=== PATIENT | male | born 1955 | race Caucasian/White ===

== ENCOUNTER 2018-09-06 14:21 | Inpatient (IN) | payer OTHER ==
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
[2018-09-06] MEDS ORDERED: guaiFENesin/D-METHORPHAN HB 10 ML UNIT-DOSE CUPS PO PRN (19:00)
[2018-09-06] MEDS ORDERED: MAGNESIUM HYDROX 2400MG/30ML ORAL SUSPENSION 30 ML CUP PO PRN (19:00)
[2018-09-06] MEDS ORDERED: MAG HYDROX/AL HYDROX/SIMETH 30 ML UNIT-DOSE CUP PO PRN (19:00)
[2018-09-06] MEDS ORDERED: P-EPHED 60MG/TRIPROLIDI 2.5MG TABLET PO PRN (19:00)
[2018-09-06] MEDS ORDERED: NICOTINE POLACRILEX 2 MG GUM BC PRN (19:00)
[2018-09-06] MEDS ORDERED: chlordiazePOXIDE HCL 25 MG CAPSULE PO PRN (19:00)
[2018-09-06] MEDS ORDERED: IBUPROFEN 400 MG TABLET (FP) PO PRN (19:00)
[2018-09-06] MEDS ORDERED: ACETAMINOPHEN 325 MG TABLET (FP) PO PRN (19:00)
[2018-09-06] MEDS ORDERED: MAGNESIUM CITRATE 300 ML BOTTLE PO PRN (19:00)
[2018-09-06] MEDS ORDERED: MENTHOL/PHENOL 1 EACH UD MM PRN (19:00)
[2018-09-06 20:12] VITALS: BMI 29.1
[2018-09-06] MEDS ORDERED: MELATONIN 5 MG TABLETS PO PRN (22:00)
[2018-09-06] MEDS: THIAMINE HCL 100 MG TABLET (FP) PO SCH (22:35)
[2018-09-06] MEDS: chlordiazePOXIDE HCL 25 MG CAPSULE PO SCH (22:35)
[2018-09-06] MEDS: BACITRACIN/POLYMYXIN B SULFATE 15 GM TUBE TP SCH (22:48)
[2018-09-07] MEDS: chlordiazePOXIDE HCL 25 MG CAPSULE PO SCH ×4 (06:12→22:18)
[2018-09-07] MEDS ORDERED: METHADONE 120 MG, METHADONE 20 MG PO ONE (10:00)
[2018-09-07] MEDS ORDERED: METHADONE HCL 10 MG TABLET PO ONE (10:00)
[2018-09-07] MEDS ORDERED: METHADONE HCL 10 MG TABLET ONE (10:02)
[2018-09-07] MEDS ORDERED: METHADONE HCL 40 MG DISPERSABLE TABLET ONE (10:03)
[2018-09-07] MEDS: PRENATAL VITAMINS W/ FOLIC ACID TABLET (FP) PO SCH (10:09)
[2018-09-07] MEDS: BACITRACIN/POLYMYXIN B SULFATE 15 GM TUBE TP SCH ×2 (10:10→22:33)
[2018-09-07] MEDS: LOPERAMIDE HCL 2 MG CAPSULE PO PRN (11:39)
--- NOTE | 2018-09-07 13:47 | PN ---
S CIWA - CIWA Score Nausea/Vomitin-No Nausea/No Vomiting Muscle Tremors: 2 Anxiety: 3 Agitation: 2 Paroxysmal Sweats: 1-Minimal Palms Moist Orientation: 0-Oriented Tacttile Disturbances: 0-None Auditory Disturbances: 0-None Visual Disturbances: 0-None Headache: 1-Very Mild CIWA-Ar Total Score: 9 BHS Progress Note (SOAP) Subjective: anxiety restlessness trouble concentrating difficulty to fall a sleep Objective: 09/07/18 14:42 Vital Signs Temperature 99.2 F 09/07/18 13:49 Pulse Rate 63 09/07/18 13:49 Respiratory Rate 18 09/07/18 13:49 Blood Pressure 97/64 09/07/18 13:49 O2 Sat by Pulse Oximetry (%) lab pending Assessment: 09/07/18 14:53 withdrawal sx Plan: continue detox
[2018-09-07] MEDS: THIAMINE HCL 100 MG TABLET (FP) PO SCH (22:19)
[2018-09-08] MEDS ORDERED: METHADONE HCL 40 MG DISPERSABLE TABLET ONE (05:04)
[2018-09-08] MEDS ORDERED: METHADONE HCL 10 MG TABLET ONE (05:04)
[2018-09-08] MEDS: METHADONE 120 MG, METHADONE 20 MG PO SCH (05:51)
[2018-09-08] MEDS: chlordiazePOXIDE HCL 25 MG CAPSULE PO SCH ×3 (05:52→17:25)
[2018-09-08] MEDS ORDERED: METHADONE HCL 40 MG DISPERSABLE TABLET PO SCH (06:00)
[2018-09-08] MEDS: PRENATAL VITAMINS W/ FOLIC ACID TABLET (FP) PO SCH (10:06)
[2018-09-08] MEDS: BACITRACIN/POLYMYXIN B SULFATE 15 GM TUBE TP SCH ×2 (10:07→22:18)
[2018-09-08 10:30] LABS: HEMATOCRIT 35.2 % (35.4-49); HEMOGLOBIN 12.1 GM/dL (11.7-16.9); MCH 31.9 pg (25.7-33.7); MCHC 34.4 g/dl (32.0-35.9); MEAN PLT VOLUME 7.9 fl (7.5-11.1); PLATELET COUNT 249 K/MM3 (134-434); RBC 3.79 M/mm3 (4.00-5.60); RDW 13.8 % (11.9-15.9); WHITE BLOOD COUNT 9.9 K/mm3 (4.0-10.0)
[2018-09-08 10:57] LABS: ALBUMIN 2.6 g/dl (3.4-5.0); ALK PHOS 68 U/L (45-117); ANION GAP 7 MMOL/L (8-16); BILIRUBIN,TOTAL 0.8 mg/dL (0.2-1); BLOOD UREA NITROGEN 10 mg/dL (7-18); CALCIUM 8.2 mg/dL (8.5-10.1); CHLORIDE 106 mmol/L (98-107); CO2 27 mmol/L (21-32); CREATININE 0.6 mg/dL (0.55-1.3); GLUCOSE,RANDOM 106 mg/dL (74-106); POTASSIUM 3.6 mmol/L (3.5-5.1); SGOT/AST 41 U/L (15-37); SGPT/ALT 31 U/L (13-61); SODIUM 140 mmol/L (136-145); TOT PROT 7.6 g/dl (6.4-8.2)
--- NOTE | 2018-09-08 16:03 | PN ---
[facility] CIWA - CIWA Score Nausea/Vomitin-No Nausea/No Vomiting Muscle Tremors: 1-None Visible, but [place] Anxiety: 1-Mildly Anxious Agitation: 1-Slight > Activity Paroxysmal Sweats: 1-Minimal Palms Moist Orientation: 1-Uncertain about Date Tacttile Disturbances: 0-None Auditory Disturbances: 0-None Visual Disturbances: 0-None Headache: 1-Very Mild CIWA-Ar Total Score: 6 S Progress Note (SOAP) Subjective: ambulate with cane anxiety tremor sweating restlessness Objective: 09/08/18 16:05 Vital Signs Temperature 99.1 F 09/08/18 13:35 Pulse Rate 61 09/08/18 13:35 Respiratory Rate 18 09/08/18 13:35 Blood Pressure 99/62 09/08/18 13:35 O2 Sat by Pulse Oximetry (%) Laboratory Last Values WBC 9.9 K/mm3 (4.0-10.0) 09/08/18 07:00 RBC 3.79 M/mm3 (4.00-5.60) L 09/08/18 07:00 Hgb 12.1 GM/dL (11.7-16.9) 09/08/18 07:00 Hct 35.2 % (35.4-49) L 09/08/18 07:00 MCV 93.0 fl (80-96) 09/08/18 07:00 MCH 31.9 pg (25.7-33.7) 09/08/18 07:00 MCHC 34.4 g/dl (32.0-35.9) 09/08/18 07:00 RDW 13.8 % (11.9-15.9) 09/08/18 07:00 Plt Count 249 K/MM3 (134-434) 09/08/18 07:00 MPV 7.9 fl (7.5-11.1) 09/08/18 07:00 Sodium 140 mmol/L (136-145) 09/08/18 07:00 Potassium 3.6 mmol/L (3.5-5.1) 09/08/18 07:00 Chloride 106 mmol/L (98-107) 09/08/18 07:00 Carbon Dioxide 27 mmol/L (21-32) 09/08/18 07:00 Anion Gap 7 MMOL/L (8-16) L 09/08/18 07:00 BUN 10 mg/dL (7-18) 09/08/18 07:00 Creatinine 0.6 mg/dL (0.55-1.3) 09/08/18 07:00 Creat Clearance w eGFR > 60 (>60) 09/08/18 07:00 Random Glucose 106 mg/dL (74-106) 09/08/18 07:00 Calcium 8.2 mg/dL (8.5-10.1) L 09/08/18 07:00 Total Bilirubin 0.8 mg/dL (0.2-1) 09/08/18 07:00 AST 41 U/L (15-37) H 09/08/18 07:00 ALT 31 U/L (13-61) 09/08/18 07:00 Alkaline Phosphatase 68 U/L (45-117) 09/08/18 07:00 Total Protein 7.6 g/dl (6.4-8.2) 09/08/18 07:00 Albumin 2.6 g/dl (3.4-5.0) L 09/08/18 07:00 RPR Titer Nonreactive (NONREACTIVE) 09/08/18 07:00 lab noted Assessment: 09/08/18 16:06 withdrawal sx Plan: continue detox
[2018-09-08] MEDS: chlordiazePOXIDE 5 MG CAPSULE PO SCH (22:18)
[2018-09-08] MEDS: THIAMINE HCL 100 MG TABLET (FP) PO SCH (22:18)
[2018-09-08] MEDS: LOPERAMIDE HCL 2 MG CAPSULE PO PRN (22:23)
[2018-09-09] MEDS ORDERED: METHADONE HCL 40 MG DISPERSABLE TABLET ONE (05:10)
[2018-09-09] MEDS ORDERED: METHADONE HCL 10 MG TABLET ONE (05:10)
[2018-09-09] MEDS: METHADONE 120 MG, METHADONE 20 MG PO SCH (05:38)
[2018-09-09] MEDS: chlordiazePOXIDE 5 MG CAPSULE PO SCH ×3 (05:39→16:52)
[2018-09-09] MEDS: BACITRACIN/POLYMYXIN B SULFATE 15 GM TUBE TP SCH ×2 (10:16→22:56)
[2018-09-09] MEDS: PRENATAL VITAMINS W/ FOLIC ACID TABLET (FP) PO SCH (10:16)
[2018-09-09] MEDS ORDERED: chlordiazePOXIDE HCL 10 MG CAPSULE ONE (20:04)
[2018-09-09] MEDS: THIAMINE HCL 100 MG TABLET (FP) PO SCH (22:56)
[2018-09-09] MEDS: chlordiazePOXIDE HCL 10 MG CAPSULE PO SCH (22:56)
--- NOTE | 2018-09-09 23:45 | PN ---
[facility] Progress Note (SOAP) Subjective: Diarrhea. Objective: PATIENT A & O X 3, OBSERVED AMBULATING ON UNIT. IN NO ACUTE DISTRESS. 09/09/18 23:43 Vital Signs Temperature 97.9 F 09/09/18 18:00 Pulse Rate 63 09/09/18 18:00 Respiratory Rate 18 09/09/18 18:00 Blood Pressure 97/61 09/09/18 18:00 O2 Sat by Pulse Oximetry (%) Laboratory Tests 09/08/18 09/08/18 09/08/18 07:00 07:00 07:00 WBC 9.9 RBC 3.79 L Hgb 12.1 Hct 35.2 L MCV 93.0 MCH 31.9 MCHC 34.4 RDW 13.8 Plt Count 249 MPV 7.9 Sodium 140 Potassium 3.6 Chloride 106 Carbon Dioxide 27 Anion Gap 7 L BUN 10 Creatinine 0.6 Creat Clearance w eGFR > 60 Random Glucose 106 Calcium 8.2 L Total Bilirubin 0.8 AST 41 H ALT 31 Alkaline Phosphatase 68 Total Protein 7.6 Albumin 2.6 L RPR Titer Nonreactive LABS NOTED. Assessment: 09/09/18 23:44 WITHDRAWAL SYMPTOMS. Plan: CONTINUE DETOX. INCREASE DAILY PO FLUID INTAKE. PRN IMMODIUM FOR DIARRHEA. PATIENT SCHEDULED FOR D/C TOMORROW.
[2018-09-10 00:30] VITALS: PULSE 68
[2018-09-10] MEDS ORDERED: METHADONE HCL 10 MG TABLET ONE (04:54)
[2018-09-10] MEDS ORDERED: METHADONE HCL 40 MG DISPERSABLE TABLET ONE (04:54)
[2018-09-10] MEDS: METHADONE 120 MG, METHADONE 20 MG PO SCH (05:04)
[2018-09-10] MEDS: chlordiazePOXIDE HCL 10 MG CAPSULE PO SCH (05:04)
[2018-09-10 06:10] VITALS: BP 95/63; TEMP 99.5
--- NOTE | 2018-09-10 20:24 | DS ---
[facility] Detox Discharge Summary Admission Date: 09/06/18 Discharge Date: 09/10/18 - History Present History: Opioid Dependence, Sedative Dependence, MMTP Additional Comments: PATIENT LEFT DETOX UNIT EARLY IN AM PRIOR TO [facility] ARRIVAL OF [employer] LE[employer] ON DETOX UNIT. THUS, PRE-DISCHARGE MEDICAL ASSESSMENT UNABLE TO BE DONE PRIOR TO PATIENT' S DISCHARGE. YESTERDAY, PATIENT REPORTED THAT HE WOULD RETURN TO [facility] ([place], [place]) FOR AFTERCARE. PATIENT ALSO NOTES THAT HE WILL ATTEND '[facility] ([place], [place]) FOR AFTERCARE. Pertinent Past History: Nicotine Dependence, Hep C, [facility] - Physical Exam Results Vital Signs: Vital Signs Temperature 99.5 F 09/10/18 06:09 Pulse Rate 68 09/10/18 06:09 Respiratory Rate 18 09/10/18 06:09 Blood Pressure 95/63 09/10/18 06:09 O2 Sat by Pulse Oximetry (%) Pertinent Admission Physical Exam Findings: WITHDRAWAL SYMPTOMS. Laboratory Tests 09/08/18 09/08/18 09/08/18 07:00 07:00 07:00 WBC 9.9 RBC 3.79 L Hgb 12.1 Hct 35.2 L MCV 93.0 MCH 31.9 MCHC 34.4 RDW 13.8 Plt Count 249 MPV 7.9 Sodium 140 Potassium 3.6 Chloride 106 Carbon Dioxide 27 Anion Gap 7 L BUN 10 Creatinine 0.6 Creat Clearance w eGFR > 60 Random Glucose 106 Calcium 8.2 L Total Bilirubin 0.8 AST 41 H ALT 31 Alkaline Phosphatase 68 Total Protein 7.6 Albumin 2.6 L RPR Titer Nonreactive LABS NOTED. - Treatment Hospital Course: Detox Protocol Followed, Detoxed Safely, Responded well, Discharged Condition Good Patient has Accepted a Rehab Referral to: PT. REFERRED TO '[facility] ([place], [place]) FOR AFTERCARE. - Medication Discharge Medications: Ambulatory Orders Methadone [Dolophine -] 140 mg PO DAILY 09/06/18 - Diagnosis (1) Nicotine dependence Status: Acute Qualifiers: Nicotine product type: cigarettes Substance use status: uncomplicated Qualified Code(s): F17.210 - Nicotine dependence, cigarettes, uncomplicated (2) Sedative hypnotic or anxiolytic dependence Status: Acute (3) Opioid dependence on agonist therapy Status: Chronic - AMA Did Patient Leave Against Medical Advice: No
== END 2018-09-10 06:35 | disposition home or self-care (01) | DRG 773 ==
LOC: YASAS 14:21 → Y3N 19:57
PROVIDERS: ADMIT Surgery; ATTEND Surgery
PROC: HZ2ZZZZ Detoxification Services for Substance Abuse Treatment (ICD-10-PCS; principal; 2018-09-06)
DX: F13.230 Sedative, hypnotic or anxiolytic dependence with withdrawal, uncomplicated (principal); F11.20 Opioid dependence, uncomplicated; F17.210 Nicotine dependence, cigarettes, uncomplicated
CPT/HCPCS: 36415; 80053; 85027; 86593

== ENCOUNTER 2022-05-07 14:18 | Inpatient (IN) | payer OTHER ==
[2022-05-07 14:35] VITALS: BMI 23.7
[2022-05-07] MEDS ORDERED: PIPERACILLIN/TAZOB 2.25 GM 2.25 GM in DEXTROSE 5%-WATER - 50 ML IVPB ONE ×2 (16:46→19:21)
[2022-05-07] MEDS ORDERED: VANCOMYCIN 1 GM in D5W (PRE-DOCKED) 1,000 MG/250 ML IVPB ONE (16:46)
[2022-05-07] MEDS ORDERED: hydrOXYzine PAMOATE 25 MG CAPSULE (FP) PO ONE ×2 (18:43→18:49)
[2022-05-07] MEDS ORDERED: DICYCLOMINE HCL 20 MG TABLET PO ONE (18:43)
[2022-05-07] MEDS ORDERED: LACTATED RINGERS SOLUTION 1000 ML INFUS.BAG IV ONE (18:44)
[2022-05-07] MEDS ORDERED: VANCOMYCIN/WATER FOR INJ (PEG) 1,000 MG/200 ML BAG IVPB ONE (18:45)
[2022-05-07] MEDS ORDERED: PIPERACILLIN/TAZOB 2.25 GM 2.25 GM/50 ML BAG IVPB ONE ×3 (18:45→18:49)
[2022-05-07] MEDS ORDERED: DICYCLOMINE HCL 10 MG CAPSULE ONE (18:49)
[2022-05-07 19:49] LABS: BASO % 0.5 % (0-2.0); EOS % 2.9 % (0-4.5); HEMATOCRIT 35.6 % (35.4-49); HEMOGLOBIN 12.3 GM/dL (11.7-16.9); LYMPH % 34.6 % (8-40); MCH 32.8 pg (25.7-33.7); MCHC 34.4 g/dl (32.0-35.9); MEAN CELL VOLUME 95.3 fl (80-96); MEAN PLT VOLUME 7.1 fl (7.5-11.1); MONO % 14.1 % (3.8-10.2); NEUT % 47.9 % (42.8-82.8); PLATELET COUNT 156 10^3/uL (134-434); RBC 3.74 M/mm3 (4.00-5.60); RDW 15.2 % (11.9-15.9)
[2022-05-07 19:58] LABS: INR 1.02 (0.83-1.09); PROTHROMBIN TIME (PATIENT) 11.7 SEC (9.7-13.0)
[2022-05-07 20:01] LABS: ACTIVATED PTT 31.7 SECONDS (25.2-36.5)
[2022-05-07 20:15] LABS: CALCIUM 8.9 mg/dL (8.5-10.1)
[2022-05-07 20:16] LABS: ALBUMIN 3.4 g/dl (3.4-5.0); MAGNESIUM 2.2 mg/dL (1.8-2.4)
[2022-05-07 20:19] LABS: CREATININE 0.8 mg/dL (0.55-1.3)
[2022-05-07 20:21] LABS: BILIRUBIN,TOTAL 0.3 mg/dL (0.2-1); TOT PROT 7.4 g/dl (6.4-8.2)
[2022-05-08] MEDS ORDERED: LORazepam 1 MG TABLET ONE (00:28)
[2022-05-08] MEDS ORDERED: VANCOMYCIN/WATER 1,250 MG/250 ML BAG IVPB SCH ×3 (03:30→07:15)
[2022-05-08] MEDS: LORazepam 1 MG TABLET PO PRN ×2 (04:47→08:57)
[2022-05-08] MEDS ORDERED: methaDONE HCL 10 MG TABLET PO ONE (08:16)
[2022-05-08] MEDS: ENOXAPARIN NA (PORCINE) 40 MG/0.4 ML DISP.SYRIN SQ SCH (10:13)
[2022-05-08] MEDS ORDERED: chlordiazePOXIDE HCL 25 MG CAPSULE PO PRN (12:52)
[2022-05-08] MEDS ORDERED: BENZOCAINE/MENTHOL (CHLORASEPTIC ) LOZENGE MM PRN (13:53)
[2022-05-08] MEDS ORDERED: MAG HYDROX/AL HYDROX/SIMETH 30 ML UNIT-DOSE CUP PO PRN (13:53)
[2022-05-08] MEDS ORDERED: ONDANSETRON *ODT* 4 MG TABLET SL PRN (13:53)
[2022-05-08] MEDS ORDERED: MAGNESIUM CITRATE 300 ML BOTTLE PO PRN (13:53)
[2022-05-08] MEDS ORDERED: IBUPROFEN 400 MG TABLET (FP) PO PRN (13:53)
[2022-05-08] MEDS ORDERED: hydrOXYzine PAMOATE 25 MG CAPSULE (FP) PO PRN (13:53)
[2022-05-08] MEDS ORDERED: DICYCLOMINE HCL 10 MG CAPSULE PO PRN (13:53)
[2022-05-08] MEDS ORDERED: MAGNESIUM HYDROX 2400MG/30ML ORAL SUSPENSION 30 ML CUP PO PRN (13:53)
[2022-05-08] MEDS ORDERED: ACETAMINOPHEN 325 MG TABLET (FP) PO PRN ×2 (13:53)
[2022-05-08] MEDS ORDERED: IBUPROFEN 600 MG TABLET (FP) PO PRN (13:53)
[2022-05-08] MEDS ORDERED: BISMUTH SUBSALICYLATE 524 MG/30 ML PO PRN (13:53)
[2022-05-08] MEDS ORDERED: LOPERAMIDE HCL 2 MG CAPSULE PO PRN (13:53)
[2022-05-08] MEDS ORDERED: METHOCARBAMOL 500 MG TABLET PO PRN (13:53)
[2022-05-08] MEDS ORDERED: NICOTINE 10 MG CARTRIDGE (INHALER) IH PRN (13:53)
[2022-05-08] MEDS ORDERED: LORazepam 1 MG TABLET PO PRN ×3 (13:55→14:47)
[2022-05-08 14:44] LABS: BASO % 0.4 % (0-2.0); EOS % 2.4 % (0-4.5); HEMATOCRIT 33.4 % (35.4-49); HEMOGLOBIN 11.6 GM/dL (11.7-16.9); LYMPH % 25.8 % (8-40); MCH 32.8 pg (25.7-33.7); MCHC 34.7 g/dl (32.0-35.9); MEAN CELL VOLUME 94.6 fl (80-96); NEUT % 61.4 % (42.8-82.8); PLATELET COUNT 146 10^3/uL (134-434); RBC 3.53 M/mm3 (4.00-5.60); RDW 15.4 % (11.9-15.9); WHITE BLOOD COUNT 3.4 K/mm3 (4.0-10.0)
[2022-05-08] MEDS ORDERED: SODIUM CHLORIDE 1,000 ML IV STA (14:45)
[2022-05-08] MEDS ORDERED: LORazepam 0.5 MG TABLET PO PRN (14:47)
[2022-05-08 15:03] LABS: BLOOD UREA NITROGEN 18.9 mg/dL (7-18); CALCIUM 8.6 mg/dL (8.5-10.1); MAGNESIUM 2.2 mg/dL (1.8-2.4)
[2022-05-08 15:05] LABS: CREATININE 0.8 mg/dL (0.55-1.3); PHOSPHOROUS 3.2 mg/dL (2.5-4.9)
[2022-05-08 15:07] LABS: BILIRUBIN,TOTAL 0.4 mg/dL (0.2-1); TOT PROT 6.8 g/dl (6.4-8.2)
[2022-05-08] MEDS ORDERED: LORazepam 1 MG TABLET PO SCH (17:00)
[2022-05-08] MEDS ORDERED: chlordiazePOXIDE HCL 25 MG CAPSULE PO SCH (17:00)
[2022-05-08] MEDS: THIAMINE HCL 100 MG TABLET (FP) PO SCH (21:13)
[2022-05-08] MEDS: LORazepam 0.5 MG TABLET PO PRN (21:14)
[2022-05-08] MEDS: MELATONIN 5 MG TABLETS PO SCH (21:14)
[2022-05-09] MEDS ORDERED: methaDONE HCL 10 MG TABLET PO SCH (06:00)
[2022-05-09] MEDS: LORazepam 0.5 MG TABLET PO PRN ×2 (08:59→15:40)
[2022-05-09] MEDS: ENOXAPARIN NA (PORCINE) 40 MG/0.4 ML DISP.SYRIN SQ SCH (10:01)
[2022-05-09] MEDS: PRENATAL VITAMINS W/ FOLIC ACID TABLET (FP) PO SCH (10:01)
[2022-05-09 10:39] LABS: HEMATOCRIT 33.8 % (35.4-49); HEMOGLOBIN 11.5 GM/dL (11.7-16.9); MCH 32.1 pg (25.7-33.7); MEAN CELL VOLUME 94.3 fl (80-96); MEAN PLT VOLUME 7.5 fl (7.5-11.1); PLATELET COUNT 140 10^3/uL (134-434); RBC 3.58 M/mm3 (4.00-5.60); WHITE BLOOD COUNT 2.9 K/mm3 (4.0-10.0)
[2022-05-09 11:04] LABS: CALCIUM 8.4 mg/dL (8.5-10.1); CREATININE 0.8 mg/dL (0.55-1.3); PHOSPHOROUS 3.2 mg/dL (2.5-4.9)
[2022-05-09 11:06] LABS: ALBUMIN 2.9 g/dl (3.4-5.0); BILIRUBIN,TOTAL 0.3 mg/dL (0.2-1); BLOOD UREA NITROGEN 17.6 mg/dL (7-18); MAGNESIUM 2.2 mg/dL (1.8-2.4); TOT PROT 6.6 g/dl (6.4-8.2)
[2022-05-09 11:30] LABS: ANISOCYTOSIS 1+; MACROCYTOSIS 0
[2022-05-09 11:52] LABS: HIV INTERPRETATION NEGATIVE (NEGATIVE)
[2022-05-09 13:11] LABS: URINE APPEARANCE CLEAR; URINE BILIRUBIN NEGATIVE (NEGATIVE); URINE COLOR YELLOW; URINE GLUCOSE (UA) NEGATIVE (NEGATIVE); URINE KETONE NEGATIVE (NEGATIVE); URINE LEUK ESTERASE NEGATIVE (NEGATIVE); URINE NITRITE NEGATIVE (NEGATIVE); URINE PROTEIN NEGATIVE (NEGATIVE); URINE UROBILINOGEN 0.2 mg/dL (0.2-1.0)
[2022-05-09 14:01] LABS: COCAINE, UR NEGATIVE (NEGATIVE); OPIATES, URI NEGATIVE (NEGATIVE); PHENCYCLIDINE,URINE NEGATIVE (NEGATIVE); URINE BARBITURATES NEGATIVE (NEGATIVE); URINE BENZODIAZEPINES NEGATIVE (NEGATIVE)
[2022-05-09 15:07] LABS: METHADONE, UR POSITIVE (NEGATIVE); URINE AMPHETAMINES NEGATIVE (NEGATIVE)
[2022-05-09] MEDS: MELATONIN 5 MG TABLETS PO SCH (21:31)
[2022-05-09] MEDS: THIAMINE HCL 100 MG TABLET (FP) PO SCH (21:31)
[2022-05-10] MEDS ORDERED: LORazepam 1 MG TABLET PO SCH (05:00)
[2022-05-10] MEDS ORDERED: chlordiazePOXIDE HCL 25 MG CAPSULE PO SCH (05:00)
[2022-05-10] MEDS: PRENATAL VITAMINS W/ FOLIC ACID TABLET (FP) PO SCH (09:04)
[2022-05-10] MEDS: LORazepam 0.5 MG TABLET PO PRN (09:04)
[2022-05-10] MEDS: ENOXAPARIN NA (PORCINE) 40 MG/0.4 ML DISP.SYRIN SQ SCH (09:04)
[2022-05-10 09:15] LABS: BASO % 0.8 % (0-2.0); EOS % 3.5 % (0-4.5); HEMATOCRIT 34.9 % (35.4-49); LYMPH % 33.6 % (8-40); MCH 32.7 pg (25.7-33.7); MCHC 34.5 g/dl (32.0-35.9); MEAN CELL VOLUME 94.9 fl (80-96); MEAN PLT VOLUME 7.3 fl (7.5-11.1); MONO % 7.7 % (3.8-10.2); NEUT % 54.4 % (42.8-82.8); PLATELET COUNT 158 10^3/uL (134-434); RBC 3.68 M/mm3 (4.00-5.60); WHITE BLOOD COUNT 3.5 K/mm3 (4.0-10.0)
[2022-05-10 09:28] LABS: CALCIUM 8.4 mg/dL (8.5-10.1)
[2022-05-10 09:29] LABS: ALBUMIN 3.1 g/dl (3.4-5.0); BLOOD UREA NITROGEN 17.2 mg/dL (7-18); MAGNESIUM 2.1 mg/dL (1.8-2.4)
[2022-05-10 09:32] LABS: CREATININE 0.7 mg/dL (0.55-1.3); PHOSPHOROUS 3.7 mg/dL (2.5-4.9)
[2022-05-10 09:33] LABS: BILIRUBIN,TOTAL 0.3 mg/dL (0.2-1); TOT PROT 7.3 g/dl (6.4-8.2)
[2022-05-10] MEDS: MELATONIN 5 MG TABLETS PO SCH (21:19)
[2022-05-10] MEDS: THIAMINE HCL 100 MG TABLET (FP) PO SCH (21:19)
[2022-05-11] MEDS ORDERED: chlordiazePOXIDE HCL 10 MG CAPSULE PO PRN
[2022-05-11] MEDS ORDERED: LORazepam 0.5 MG TABLET PO PRN
[2022-05-11] MEDS ORDERED: LORazepam 0.5 MG TABLET PO SCH (05:00)
[2022-05-11] MEDS ORDERED: chlordiazePOXIDE HCL 10 MG CAPSULE PO SCH (05:00)
[2022-05-11] MEDS: ENOXAPARIN NA (PORCINE) 40 MG/0.4 ML DISP.SYRIN SQ SCH (09:21)
[2022-05-11] MEDS: PRENATAL VITAMINS W/ FOLIC ACID TABLET (FP) PO SCH (09:21)
[2022-05-11 10:51] LABS: BASO % 0.6 % (0-2.0); EOS % 2.4 % (0-4.5); HEMATOCRIT 38.7 % (35.4-49); LYMPH % 32.3 % (8-40); MCH 31.7 pg (25.7-33.7); MCHC 33.5 g/dl (32.0-35.9); MEAN CELL VOLUME 94.5 fl (80-96); MEAN PLT VOLUME 7.4 fl (7.5-11.1); MONO % 5.4 % (3.8-10.2); NEUT % 59.3 % (42.8-82.8); PLATELET COUNT 189 10^3/uL (134-434); RDW 15.1 % (11.9-15.9); WHITE BLOOD COUNT 3.1 K/mm3 (4.0-10.0)
[2022-05-11 11:50] LABS: CALCIUM 8.8 mg/dL (8.5-10.1)
[2022-05-11 11:51] LABS: ALBUMIN 3.3 g/dl (3.4-5.0); BLOOD UREA NITROGEN 16.8 mg/dL (7-18); MAGNESIUM 2.2 mg/dL (1.8-2.4)
[2022-05-11 11:54] LABS: CREATININE 0.9 mg/dL (0.55-1.3); PHOSPHOROUS 3.5 mg/dL (2.5-4.9)
[2022-05-11 11:55] LABS: TOT PROT 7.7 g/dl (6.4-8.2)
[2022-05-11 11:56] LABS: BILIRUBIN,TOTAL 0.4 mg/dL (0.2-1)
[2022-05-11] MEDS: COLLAGENASE CLOSTRIDIUM HIST. 30 GRAMS TUBE TP SCH (19:09)
[2022-05-11] MEDS: THIAMINE HCL 100 MG TABLET (FP) PO SCH (22:04)
[2022-05-11] MEDS: MELATONIN 5 MG TABLETS PO SCH (22:04)
[2022-05-12] MEDS ORDERED: chlordiazePOXIDE HCL 10 MG CAPSULE PO SCH (05:00)
[2022-05-12] MEDS ORDERED: LORazepam 0.5 MG TABLET PO ONE (05:00)
[2022-05-12 09:57] VITALS: RESP 20
[2022-05-12] MEDS: PRENATAL VITAMINS W/ FOLIC ACID TABLET (FP) PO SCH (10:00)
[2022-05-12] MEDS: ENOXAPARIN NA (PORCINE) 40 MG/0.4 ML DISP.SYRIN SQ SCH (10:00)
[2022-05-12] MEDS: COLLAGENASE CLOSTRIDIUM HIST. 30 GRAMS TUBE TP SCH (10:00)
[2022-05-12 11:05] LABS: BASO % 0.8 % (0-2.0); EOS % 1.4 % (0-4.5); HEMATOCRIT 38.3 % (35.4-49); HEMOGLOBIN 13.1 GM/dL (11.7-16.9); LYMPH % 30.6 % (8-40); MCHC 34.3 g/dl (32.0-35.9); MEAN CELL VOLUME 93.4 fl (80-96); MEAN PLT VOLUME 7.4 fl (7.5-11.1); MONO % 7.4 % (3.8-10.2); NEUT % 59.8 % (42.8-82.8); PLATELET COUNT 195 10^3/uL (134-434); RDW 14.9 % (11.9-15.9); WHITE BLOOD COUNT 3.1 K/mm3 (4.0-10.0)
[2022-05-12 11:50] LABS: CALCIUM 8.8 mg/dL (8.5-10.1)
[2022-05-12 11:51] LABS: ALBUMIN 3.4 g/dl (3.4-5.0); BLOOD UREA NITROGEN 22.7 mg/dL (7-18); MAGNESIUM 2.3 mg/dL (1.8-2.4)
[2022-05-12 11:54] LABS: CREATININE 0.8 mg/dL (0.55-1.3); PHOSPHOROUS 3.4 mg/dL (2.5-4.9)
[2022-05-12 11:55] LABS: BILIRUBIN,TOTAL 0.4 mg/dL (0.2-1); TOT PROT 8.1 g/dl (6.4-8.2)
[2022-05-12 15:41] VITALS: BP 111/88; PULSE 68; TEMP 98.3
[2022-05-13] MEDS ORDERED: chlordiazePOXIDE HCL 10 MG CAPSULE PO ONE (05:00)
== END 2022-05-12 16:30 | disposition other institution (70) | DRG 300 ==
LOC: JER 14:18 → JERBED 21:50 → J5S 05-08 01:51
PROVIDERS: ADMIT Internal Medicine; ATTEND Internal Medicine
PROC: HZ2ZZZZ Detoxification Services for Substance Abuse Treatment (ICD-10-PCS; principal; 2022-05-09)
DX: I83.018 Varicose veins of right lower extremity with ulcer other part of lower leg (principal); F11.20 Opioid dependence, uncomplicated; L97.818 Non-pressure chronic ulcer of other part of right lower leg with other specified severity; L03.116 Cellulitis of left lower limb; F13.239 Sedative, hypnotic or anxiolytic dependence with withdrawal, unspecified; G89.29 Other chronic pain; F14.10 Cocaine abuse, uncomplicated
CPT/HCPCS: 0241U-QW; 36415; 71045-TC-FY; 73590-TC-RT-FY; 80053; 80307; 81003; 83735; 84100; 85025; 85610; 85730; 87040; 87086; 87389; 93005; 93010; 93970-TC; 99285-25